=== PATIENT | male | born 1990 | race Caucasian/White ===

== ENCOUNTER 2024-09-04 07:52 | Observation (INO) ==
--- NOTE | 2024-09-04 08:09 | ED Physician Documentation ---
"PD HPI LOWER EXT INJURY Stated complaint Stated Complaint: L ANKLE PAIN Chief complaint Chief Complaint: Trauma Ext History obtained from History obtained from: Patient History of Present Illness PD HPI LOW EXT INJURY LOCATION: Left, Ankle and Other (sdenies injury to head, neck, chest, abd, other extremities.) Type of injury: Twist (Walking on muddy slope and had an inversion twisting of the ankle with immediate pain and crackle. Unable to move his ankle or attempt standing due to pain. No obvious malrotation or misalignment. EMS called and brought him here in a splint.) Timing - onset: How many hours ago (1) and Today Timing - details: Abrupt onset and Still present Improved by: Rest Worsened by: Moving and Palpating Associated symptoms: No Weakness or Numbness Meds/Allgy Home Medications Ambulatory Orders Medication Instructions Recorded Confirmed No Known Home Medications 09/04/24 09/04/24 Allergies Allergies Allergy/AdvReac Type Severity Reaction Status Date / Time No Known Drug Allergies Allergy Verified 09/04/24 08:06 [facility] Medical History Medical History (Updated 09/04/24 @ 10:03 by Shane Flynn MD) No pertinent past medical history Surgical History Surgical History (Updated 09/04/24 @ 08:05 by Mercedes Kingsley RN) No pertinent past surgical history Social History Social History (Updated 09/04/24 @ 08:05 by Mercedes Kingsley RN) Smoking Status: Never smoker Living arrangement: At home Living Condition: Alone Support Person: No Relationship: Do you feel safe in your home environment?: Yes Suffered physical, verbal, emotional, or financial abuse?: No History of Abuse: No ETOH Use: None Substance Use: denies use POLST Patient has POLST: No Exam Constitutional normal general appearance and average body habitus HENMT normocephalic and head/scalp atraumatic Chest inspection of chest normal and palpation of chest normal Respiratory breath sounds equal bilaterally and normal respiratory effort Cardiovascular normal heart rate noted and regular rhythm noted Gastrointestinal abdomen normal to inspection, abdomen soft to palpation and nontender to palpation Back/Pelvis no thoracic spine tenderness and no lumbar spine tenderness Psychiatry mental status grossly normal, oriented x3 and thought process normal Skin skin color normal and no wounds Results Vitals Vitals: Vital Signs - 24 hr 09/04/24 08:00 09/04/24 08:35 09/04/24 08:36 Temperature 36.6 C Pulse Rate 75 Respiratory Rate 20 Blood Pressure 134/110 H O2 Saturation 98 O2 Source Room air Pain Intensity 8 8 8 09/04/24 09:33 09/04/24 09:33 09/04/24 09:34 Temperature Pulse Rate Respiratory Rate Blood Pressure O2 Saturation O2 Source Pain Intensity 5 5 5 09/04/24 09:35 Temperature Pulse Rate 73 Respiratory Rate 16 Blood Pressure 139/104 H O2 Saturation 96 O2 Source Nasal cannula Pain Intensity 5 Oxygen O2 Source Nasal cannula Labs Labs: Laboratory Tests 09/04/24 09:20 WBC 6.7 RBC 5.37 Hgb 15.6 Hct 46.7 MCV 87.0 MCH 29.1 MCHC 33.4 RDW 12.8 Plt Count 281 MPV 9.6 Neut # (Auto) 5.3 Lymph # (Auto) 0.9 L [place] # (Auto) 0.4 Eos # (Auto) 0.1 Baso # (Auto) 0.1 Absolute Nucleated RBC 0.00 Nucleated RBC % 0.0 Sodium 138 Potassium 4.3 Chloride 106 Carbon Dioxide 30 Anion Gap 2.0 L BUN 15 Creatinine 0.9 Estimated GFR (MDRD) 95 Glucose 110 H Calcium 9.7 Total Bilirubin 0.8 AST 22 ALT 38 Alkaline Phosphatase 85 Total Protein 7.1 Albumin 4.5 Globulin 2.6 Albumin/Globulin Ratio 1.7 Lipase < 10 L Procedures Splint (location) - Minor left ankle: Splint applied by: Physician Type of splint: Fiberglass and Stirrup Other: Patient tolerated well, No complications, Neurovascular intact and Good alignment (slight traction applied prior to splinting to have best alignment. ) PD Medical Decision Making ED course Complexity details: reviewed results (distal tib/fib fracture; mortis intact distally. ) and d/w [facility] [place] consultant (Dr. Mack, ortho, who will surgically repair the patient. Requests splinting/alignment and then |CT scan. ) Discharge Plan Discharge Patient Disposition: ED Transfer to [facility] Condition: Stable Clinical Impression: Closed fracture of distal end of left fibula and tibia"
[2024-09-04] MEDS: HYDROmorphone 1 MG/ML CARPUJECT IM STA (08:35)
[2024-09-04] MEDS: KETOROLAC 30 MG/ML VIAL IM STA (08:36)
--- NOTE | 2024-09-04 09:24 | XRAY Report ---
PROCEDURE: XR Ankle 3+V LT INDICATIONS: twisted ankle and pain with movement. TECHNIQUE: 3 views of the ankle were acquired. COMPARISON: None. FINDINGS: Bones: Displaced spiral distal tibial fracture extending to the tibial plafond with widening of the medial ankle mortise. Angulated displaced distal fibular fracture extending to articular surface. Dis placed fracture involves the posterior malleolus. Ankle mortise is somewhat disrupted. No suspicious bony lesions. Soft tissues: No tibiotalar joint effusion. Achilles tendon appears normal. IMPRESSION: 1. Spiral comminuted fracture of the distal tibia is displaced with extension to the tibial plafond s ubjacent to the medial malleolus as well as involvement of the posterior malleolus. 2. Oblique displaced angulated distal fibular fracture extending to articular surface. 3. Somewhat disrupted ankle mortise. Comment: At some point, CT is suggested to understand fractures better Reviewed by: Yuan Hernandez MD on 09/04/2024 9:22 AM PST Approved by: Yuan Hernandez MD on 09/04/2024 9:22 AM PST Station ID: [id number]
[2024-09-04 09:29] LABS: BASOPHILS # (AUTO) 0.1 10^3/uL (0.0-0.1); BASOPHILS % (AUTO) 0.7 %; EOSINOPHILS # (AUTO) 0.1 10^3/uL (0.0-0.7); EOSINOPHILS % (AUTO) 0.7 %; HCT - HEMATOCRIT 46.7 % (42.0-52.0); HGB - HEMOGLOBIN 15.6 g/dL (14.0-18.0); LYMPHOCYTES # (AUTO) 0.9 10^3/uL (1.5-3.5); MEAN CORPUSCULAR HEMOGLOBIN 29.1 pg (27.0-31.0); MEAN CORPUSCULAR HGB CONC 33.4 g/dL (32.0-36.0); MEAN PLATELET VOLUME 9.6 fL (7.4-11.4); MONOCYTES # (AUTO) 0.4 10^3/uL (0.0-1.0); MONOCYTES % (AUTO) 5.8 %; NEUTROPHILS # (AUTO) 5.3 10^3/uL (1.5-6.6); NEUTROPHILS % (AUTO) 79.4 %; PLT - PLATELET COUNT 281 10^3/uL (130-450); RED BLOOD COUNT 5.37 10^6/uL (4.70-6.10); RED CELL DISTRIBUTION WIDTH 12.8 % (12.0-15.0); WHITE BLOOD COUNT 6.7 x10^3/uL (4.8-10.8)
[2024-09-04] MEDS: HYDROmorphone 1 MG/ML CARPUJECT IVP STA (09:34)
[2024-09-04 09:55] LABS: ALBUMIN 4.5 g/dL (3.2-5.5); ALBUMIN/GLOBULIN RATIO 1.7 (1.0-2.2); ALKALINE PHOSPHATASE 85 IU/L (42-121); ALT ALANINE AMINOTRANSFERASE 38 IU/L (10-60); AST ASPARTATE AMINOTRANSFERASE 22 IU/L (10-42); BILIRUBIN,TOTAL 0.8 mg/dL (0.2-1.0); BUN - BLOOD UREA NITROGEN 15 mg/dL (6-20); CALCIUM 9.7 mg/dL (8.5-10.3); CARBON DIOXIDE - CO2 30 mmol/L (21-32); CHLORIDE 106 mmol/L (101-111); CREATININE 0.9 mg/dL (0.6-1.3); GFR - MDRD 95 (>89); GLUCOSE 110 mg/dL (74-104); LIPASE < 10 U/L (11-82); POTASSIUM 4.3 mmol/L (3.5-4.5); SODIUM 138 mmol/L (135-145); TOTAL PROTEIN 7.1 g/dL (6.4-8.9)
--- NOTE | 2024-09-04 11:00 | CT Report ---
PROCEDURE: CT Lower Extremity LT WO INDICATIONS: ankle fracture TECHNIQUE: Noncontrast 3-mm axial sections acquired from the distal tibial shaft to the talar dome, with coronal and sagittal reformats. For radiation dose reduction, the following was used: automated exposure c ontrol, adjustment of mA and/or kV according to patient size. COMPARISON: None. FINDINGS: Image quality: Excellent. Bones: Mildly displaced, spiral fracture of the distal tibia diaphysis, extending to the medial tibi al plafond. There is mild lateral displacement of the distal fracture fragment. Mildly displaced, int ra-articular, spiral fracture of the distal fibula metadiaphysis, with mild posterior displacement of distal fracture fragment. There is a small posterior malleolus fracture, involving approximately 20% of the tibial plafond articular surface. Small punctate ossification dorsal and lateral to the calca neocuboid articulation (3:81), concerning for punctate periosteal avulsion fracture. No ankle dislocation. Soft tissues: Diffuse subcutaneous edema of the ankle. The flexors, extensors, peroneal tendons are unremarkable. Mild tendinosis of distal Achilles tendon. Small posterior calcaneus enthesophyte. Impression: 1.Mildly displaced fracture of the distal tibia diaphysis, extending to the medial tibial plafond. 2.Mildly displaced fracture of the distal fibula metadiaphysis. 3.Small posterior malleolus fracture. 4.Punctate periosteal avulsion fracture about the calcaneocuboid articulation. 5.No ankle dislocation. Reviewed by: Kaitlin Felix MD on 09/04/2024 10:58 AM PST Approved by: Kaitlin Felix MD on 09/04/2024 10:58 AM PST Station ID: [id number]
--- NOTE | 2024-09-04 12:12 | HISTORY & PHYSICAL EXAMINATION ---
History of Present Illness Admitted From Admitted From:: ER History of Present Illness HPI Comment/Other: DOI: 09/04/24 CASSANDRA: Fell running down a hill and twisted ankle 34 yo M with left ankle pain and deformity after falling while running. Denies n/t/paresthesias and denies pain elsewhere. He denies prior injury. PMH: none PSH: none MEDS: none NKDA TOB: Denies ETOH: occasional SH: He works as a [employer] employee in [employer]. PE: wd/wn/nad L ankle: skin intact. + soft tissue swelling SILT s/s/t/dp/sp Fires ta/gs/ehl/fhl DP pulse 2+ and brisk cap refill 3 v of the x-ray and CT scan: Distal tibia and fibula fractures and posterior malleoli fracture (less than 20%) - displaced. Meds/Allgy Home Medications Ambulatory Orders Medication Instructions Recorded Confirmed No Known Home Medications 09/04/24 09/04/24 Allergies Allergies Allergy/AdvReac Type Severity Reaction Status Date / Time No Known Drug Allergies Allergy Verified 09/04/24 08:06 [facility] Medical History Medical History (Updated 09/04/24 @ 10:03 by Shane Flynn MD) No pertinent past medical history Surgical History Surgical History (Updated 09/04/24 @ 08:05 by Mercedes Kingsley RN) No pertinent past surgical history Social History Social History (Updated 09/04/24 @ 08:05 by Mercedes Kingsley RN) Smoking Status: Never smoker Living arrangement: At home Living Condition: Alone Support Person: No Relationship: Do you feel safe in your home environment?: Yes Suffered physical, verbal, emotional, or financial abuse?: No History of Abuse: No ETOH Use: None Substance Use: denies use POLST Patient has POLST: No Conclusion/Plan Problem List (1) Closed fracture of distal end of left fibula and tibia: Plan: I discussed the risks, benefits, and alternatives with the patient to include but not limited to damage to arteries, veins, nerves, need for additional surgery, infection, malunion, nonunion, I discussed also the need for surgery since this is an unstable ankle fracture he understands the risks and wishes to proceed with surgery. He will be admitted overnight for ORIF on 09/05/2024 - SCD to RLE - Strict elevation of LLE - Nonweigthbearing left lower extremity with crutches - NPO after midnight - TO OR tomorrow for ORIF of L ankle fracture Lab Results 09/04/24 09:20 09/04/24 09:20
[2024-09-04] MEDS ORDERED: ONDANSETRON ODT 4 MG TABLET TL PRN (12:38)
[2024-09-04] MEDS ORDERED: SODIUM CHLORIDE FLUSH 0.9% 10 ML SYRINGE IVP PRN (12:38)
[2024-09-04] MEDS: ONDANSETRON 4 MG/2 ML VIAL IVP STA (13:00)
--- NOTE | 2024-09-04 13:05 | PHARMACY PROGRESS NOTE ---
Best Possible Medication History Admit Date and Time: 09/04/24 [id number] Home Medications Medication Instructions Recorded Confirmed Type No Known Home Medications 09/04/24 09/04/24 History Processed by: Pharmacy (Medication reconciliation completed by biological science technicianCecilia) Medications reviewed in ED?: No Medication History completed: Yes Patient Interview: Completed Secondary Source(s): Insurance records [facility] Statement: As the person ultimately responsible for medication therapy, providers are able to order a medication from an existing home medication list in [facility] via the "Reconcile Routine" prior to Confirmation of that medication by customer support agent. Such practice is discouraged except when the physician, in their clinical judgment, deems that a medical need exists for a medication without regard to previous use.
[2024-09-04] MEDS: SODIUM CHLORIDE FLUSH 0.9% 10 ML SYRINGE IVP SCH (18:34)
[2024-09-04] MEDS: oxyCODONE 5 MG TABLET PO PRN (23:45)
[2024-09-04] MEDS: ACETAMINOPHEN 325 MG TABLET PO PRN (23:45)
[2024-09-05] MEDS: LACTATED RINGERS 1,000 ML IV SCH ×2 (02:20→20:29)
--- NOTE | 2024-09-05 09:07 | Discharge Summary ---
"Discharge Summary Admit Date: 09/04/24 Discharge Date: 09/06/24 Discharging Provider: DR DOMINGUEZ DIAGNOSES Admission Diagnoses: LEFT DISTAL TIBIA AND FIBULA FRACTURES CONSULTS | PROCEDURES Procedures: ORIF LEFT DISTAL TIBIA AND FIBULA FRACTURES - 05 Sep 2024 ALLERGIES Allergies Allergy/AdvReac Type Severity Reaction Status Date / Time No Known Drug Allergies Allergy Verified 09/04/24 08:06 MEDICATIONS Ambulatory Orders Medication Instructions Recorded Confirmed acetaminophen 325 mg tablet 975 mg (3 x 325 mg) PO Q8H #120 09/05/24 (Tylenol) tabs aspirin 81 mg chewable tablet 81 mg PO BID #60 tabs 09/05/24 docusate sodium 100 mg capsule 200 mg (2 x 100 mg) PO BID PRN 09/05/24 (Colace) constipation #40 caps ondansetron 4 mg disintegrating 4 mg PO Q8H PRN nausea and 09/05/24 tablet vomiting #12 tabs oxycodone 5 mg tablet 5 mg PO Q6H #28 tabs 09/05/24 LABS 09/04/24 09:20 09/04/24 09:20 FOLLOW UP Follow Up: WITH DR DOMINGUEZ IN 2 WEEKS. TIME SPENT Time Spent in Discharge (Minutes): 30 Discharge Plan Discharge Patient Disposition: 01 Home, Self Care Condition: Stable Prescriptions: Continued oxycodone 5 mg tablet 5 mg PO Q6H Qty: 28 0RF docusate sodium [Colace] 100 mg capsule 200 mg PO BID PRN (Reason: constipation) Qty: 40 0RF ondansetron 4 mg tablet,disintegrating 4 mg PO Q8H PRN (Reason: nausea and vomiting) Qty: 12 0RF acetaminophen [Tylenol] 325 mg tablet 975 mg PO Q8H Qty: 120 0RF aspirin 81 mg tablet,chewable 81 mg PO BID Qty: 60 0RF No Action No Known Home Medications Activity Restrictions/Additional Instructions: OPEN REDUCTION INTERNAL FIXATION LEFT ANKLE Surgeon: Dr Dominguez Date: 09/05/24 [facility] POST OPERATIVE INSTRUCTIONS ACTIVITY INSTRUCTIONS * You are non weight bearing to the left ankle. Use crutches at all times when moving around. * Do not use the extremity for pushing, pulling, or bearing weight until instructed to do so by your provider after your clinic visit. We encourage active movement of the toes every hour while awake to prevent stiffness. * You must be cleared by your orthopedic provider before operating a vehicle. * Keep extremity elevated to the level of the heart to reduce swelling. You can use ice on top of the splint to reduce pain and swelling of the extremity. DRESSING CARE * You have a well-padded, bulky splint in place that is secured with an Vega bandage. Leave the dressing in place until your follow up visit in clinic. * If you notice fever, chills, redness, excessive drainage or bleeding, a sharp increase in pain that persists after taking pain medication, pain in your calf muscles, chest pain or trouble breathing please unwrap the dressing and investigate. Then call the office with findings for further guidance. If it is after regular clinic hours, please seek care in the emergency department. * If you need to take a shower cover the dressing in a garbage bag and secure it to keep the dressing dry and intact. * In the rare case of any severe chest pain and trouble breathing, seek immediate care, do not delay for a call to the clinic. MEDICATIONS * Take three pills of 325 mg Tylenol (acetaminophen) every 8 hours regardless of pain in a scheduled manner. Do not exceed 3000 mg of Tylenol (from ALL sources, including over the counter combination products) in a 24-hour period due to risk of liver injury. * Take one pill of 5 mg oxycodone by mouth as needed for break through pain stronger than 7 out of 10 on a pain scale. Take this for severe pain 1 hour after taking the scheduled Tylenol and ibuprofen. Do not exceed 4 tablets in a 24-hour period. * Take 200 mg of Colace by mouth every 12 hours for constipation. Narcotic medications such as oxycodone may increase your risk of constipation after surgery. * Take 4 mg of Zofran by mouth every 6 hours as needed for uncontrolled nausea or vomiting. If you have persistent nausea and vomiting call our office or seek care in the emergency department.Take one pill of 81 mg of aspirin two times daily 12 hours apart for 6 weeks for blood clot prevention. * Resume all ofyour normal home medications unless specified otherwise by your surgeon tomorrow morning. Diet: Regular Interventions: Belongings Inventory Last Done: 09/04/24 14:36 Health Concerns: You were admitted for operative fixation of a left ankle fracture. Care Plan Goals: Return to independent ambulation after ankle fracture Assessment: The above plan and activity restrictions were discussed with the patient who verbalized understanding. Written instructions were provided as a reminder. Plan of Treatment: Operative fixation of left ankle fracture completed 09/05/24. Print Language: Sinhala Patient Instructions: Surgery Anesthesia After Stand Alone Forms: PCP List Follow-up Care: Rylee Dominguez DO [Provider Admit Priv/Credential] -"
--- NOTE | 2024-09-05 13:57 | ANESTHESIA PROCEDURE NOTE ---
Pre-Anesthesia VS, & Labs Diagnosis Surgical Diagnosis:: L tib fib fx Procedure Procedure: orif L tib fib fx Vitals Vital Signs: Temp Pulse Resp BP Pulse Ox 36.6 C 75 18 123/77 96 09/05/24 09:37 09/05/24 09:37 09/05/24 09:37 09/05/24 09:37 09/05/24 09:37 NPO NPO: >8 hours Lab Results Current Lab Results: Laboratory Tests 09/04/24 09:20: WBC 6.7, RBC 5.37, Hgb 15.6, Hct 46.7, MCV 87.0, MCH 29.1, MCHC 33.4, RDW 12.8, Plt Count 281, MPV 9.6, Neut # (Auto) 5.3, Lymph # (Auto) 0.9 L, [place] # (Auto) 0.4, Eos # (Auto) 0.1, Baso # (Auto) 0.1, Absolute Nucleated RBC 0.00, Nucleated RBC % 0.0, Sodium 138, Potassium 4.3, Chloride 106, Carbon Dioxide 30, Anion Gap 2.0 L, BUN 15, Creatinine 0.9, Estimated GFR (MDRD) 95, G lucose 110 H, Calcium 9.7, Total Bilirubin 0.8, AST 22, ALT 38, Alkaline Phosphatase 85, Total Protein 7.1, Albumin 4.5, Globulin 2.6, Albumin/Globulin Ratio 1.7, Lipase < 10 L Lab results reviewed: Yes 09/04/24 09:20 09/04/24 09:20 Meds/Allgy Home Medications Ambulatory Orders Medication Instructions Recorded Confirmed No Known Home Medications 09/04/24 09/04/24 Allergies Allergies Allergy/AdvReac Type Severity Reaction Status Date / Time No Known Drug Allergies Allergy Verified 09/04/24 08:06 [facility] Medical History Medical History (Updated 09/04/24 @ 10:03 by Shane Flynn MD) No pertinent past medical history Surgical History Surgical History (Updated 09/05/24 @ 13:56 by Jamie Scott CRNA) S/P wisdom tooth extraction No pertinent past surgical history Social History Social History (Updated 09/04/24 @ 08:05 by Mercedes Kingsley RN) Smoking Status: Never smoker Second hand tobacco smoke exposure: No Do you dip or chew tobacco?: No Do you vape?: No Living arrangement: At home Living Condition: Alone Support Person: No Relationship: Level: Independent Do you feel safe in your home environment?: Yes Suffered physical, verbal, emotional, or financial abuse?: No History of Abuse: No ETOH Use: None Substance Use: denies use POLST Patient has POLST: No Anesthesia Exam (Expanded) Exam General: Alert, Oriented x3 and Cooperative Dental: WNL Mouth Openin Fingerbreadth Neck Mobility: Normal Mallampati classification: II Thyromental Distance: 4-6 cm Respiratory: Lungs clear and Normal breath sounds Cardiovascular: Regular rate Neurological: Normal speech Mental/Cognitive Status: Alert/Oriented X3 and Normal for patient Cognitive Status: Within normal limits Plan Problem List (1) Closed fracture of distal end of left fibula and tibia: Plan: I discussed the risks, benefits, and alternatives with the patient to include but not limited to damage to arteries, veins, nerves, need for additional surgery, infection, malunion, nonunion, I discussed also the need for surgery since this is an unstable ankle fracture he understands the risks and wishes to proceed with surgery. He will be admitted overnight for ORIF on 09/05/2024 - SCD to RLE - Strict elevation of LLE - Nonweigthbearing left lower extremity with crutches - NPO after midnight - TO OR tomorrow for ORIF of L ankle fracture (2) No pertinent past medical history: Plan Anesthesia Type: General Consent for Procedure(s) Verified and Reviewed: Yes Code Status: Attempt Resuscitation ASA Classification ASA classification: 2-Mild systemic disease Is this case an emergency?: No
[2024-09-05] MEDS ORDERED: METOCLOPRAMIDE 10 MG/2 ML VIAL IVP PRN ×2 (13:58→14:00)
[2024-09-05] MEDS ORDERED: fentaNYL 100 MCG/2 ML VIAL IVP PRN ×2 (13:58→14:00)
[2024-09-05] MEDS ORDERED: HYDROmorphone 0.5 MG/0.5 ML SYRINGE IVP PRN ×2 (13:58→14:00)
[2024-09-05] MEDS ORDERED: NALOXONE 0.4 MG/ML VIAL IVP PRN ×2 (13:58→14:00)
[2024-09-05] MEDS ORDERED: ONDANSETRON 4 MG/2 ML VIAL IVP PRN ×2 (13:58→14:00)
[2024-09-05] MEDS ORDERED: MORPHINE 2 MG/ML CARPUJECT IVP PRN ×2 (13:58→14:00)
[2024-09-05] MEDS ORDERED: ATROPINE ABBOJECT 1 MG/10 ML SYRINGE IVP PRN ×2 (13:58→14:00)
[2024-09-05] MEDS ORDERED: ePHEDrine 50 MG/ML VIAL IVP PRN ×2 (13:58→14:00)
[2024-09-05] MEDS ORDERED: LACTATED RINGERS 1,000 ML IV SCH (14:00)
[2024-09-05] MEDS ORDERED: MIDAZOLAM 2 MG/2 ML VIAL ONE (14:18)
[2024-09-05] MEDS ORDERED: PROPOFOL 200 MG/20 ML VIAL IVP ONE (14:19)
[2024-09-05] MEDS ORDERED: LIDOCAINE-PF 2% 10 ML AMP SUBQ ONE (14:19)
[2024-09-05] MEDS ORDERED: VANCOMYCIN 1 GM VIAL ONE (14:19)
[2024-09-05] MEDS ORDERED: fentaNYL 100 MCG/2 ML VIAL ONE ×2 (14:20→16:55)
[2024-09-05] MEDS ORDERED: ROCURONIUM 50 MG/5 ML VIAL ONE (14:21)
[2024-09-05] MEDS ORDERED: BUPIVACAINE 0.5% PF 10 ML VIAL ONE ×2 (14:38→14:48)
[2024-09-05] MEDS ORDERED: ONDANSETRON 4 MG/2 ML VIAL ONE (14:53)
[2024-09-05] MEDS ORDERED: DEXAMETHASONE 4 MG/ML VIAL ONE (14:53)
[2024-09-05] MEDS ORDERED: HYDROmorphone 1 MG/ML CARPUJECT ONE (14:56)
[2024-09-05] MEDS ORDERED: ceFAZolin 1 GM VIAL ONE (14:58)
[2024-09-05] MEDS ORDERED: ACETAMINOPHEN 1,000 MG/100 ML 1,000 MG/100 ML BAG IV ONE (15:17)
[2024-09-05] MEDS ORDERED: SUGAMMADEX 200 MG/2 ML VIAL IVP ONE (16:00)
[2024-09-05] MEDS ORDERED: KETOROLAC 30 MG/ML VIAL ONE (16:33)
--- NOTE | 2024-09-05 17:46 | OPERATIVE REPORT ---
Operative Report General Admit Date: 09/04/24 Procedure Data: Operation Date: 09/05/24 13:15 Proposed Procedures p ORIF Tibia AND FIBULA(Left) - Rylee Mack DO Actual Procedures p ORIF Tibia and Fibula(Left) - Rylee Mack DO Pre-Op Diagnosis: Lt ankle tibia and fibula fractures Anesthesia Type General Case Staff Anesthesia Provider: Jamie Scott Assisting Provider: Jennifer Downs Assisting Provider: Johnny Riley Rep: Erickson Conrad (small and nephew). Case Times Into Recovery: 09/05/24 17:29 Procedure Start: 09/05/24 15:12 Procedure End: 09/05/24 17:19 Time out: 09/05/24 15:11 Implants PLATE 5H L 81MM Other Other Information/Narrative: Preop diagnosis left tib-fib fracture Postoperative diagnosis same as above Procedure performed: Open reduction internal fixation left tib fib fracture 2) short leg splint Surgeon Rylee Espinoza DO Sawdust Machine Operator Surgeon Johnny Riley MD Sawdust Machine Operator: Sangeeta Hayward PAGovind Indications for surgery please see preoperative H&P Total estimated blood loss 100 cc Tourniquet time 119 minutes at 250 mmHg Implants: 1) Small & Nephew anterior lateral tibial plate 2) Small & Nephew lateral fibula plate 3) multiple 3 5 and 2 7 screws Procedure in detail: The patient was met in the preoperative holding area his left lower extremity was signed is correct extremity. He was taken back to the operating room and placed in supine position. All bony prominences were padded. A well-padded tourniquet was placed his left lower extremity. The patient was prepped and draped in standard sterile fashion. A timeout was performed confirming the correct patient correct extremity initials on the operative site and administration of IV antibiotics. An Esmarch was used to exsanguinate the left lower extremity and the tourniquet was inflated to 250 mmHg. A lateral incision was made approximately 10 cm just anterior to the fibula. Dissection was taken down to the fibula fracture the fibula fracture was identified and cleared of debris. Next the fascia over the anterior compartment is identified and incised the superficial peroneal nerve was identified and protected throughout the case. Using a combination of finger dissection as well as wood handle elevator the anterior compartment was elevated off the anterior aspect of the. The fracture fragments were identified and cleared of debris. A pointed reduction clamp was used to reduce the tibia fracture the reduction was confirmed with intraoperative fluoroscopy. An anterior lateral plate was utilized to fix the tibia in an anatomic position. Several screws were used both proximally and distally to the fracture site after reduction and fixation was confirmed with fluoroscopy I then turned my attention to the fibula. The fracture site was cleared of debris and a pointed reduction clamp was used to reduce the fracture. A 2.7 lag screw was placed in standard fashion perpendicular to the fracture site this achieved a good reduction. A lateral fibular plate was utilized to fix the fibula and adequate amount of screws were used proximally and distally. THe wound was copiously irrigated and closed in layered fashion with 2-0 vicryl and 3-0 nylon. A sterile dressing was applied consisting of xeroform, plain gauze and an L and U splint. The patient was awoken in stable condition. All counts were correct at the end of the case.
--- NOTE | 2024-09-05 18:53 | ANESTHESIA POST OP EVALUATION ---
Anesthesia Post Eval Post Anesthesia Eval Vitals: Last Vital Signs Temp 36.6 C 09/05/24 18:30 Pulse 85 09/05/24 18:30 Resp 20 09/05/24 18:30 BP 119/83 09/05/24 18:30 Pulse Ox 93 09/05/24 18:30 O2 Flow Rate 2 09/05/24 18:30 CV Function Including HR & BP: Stable Pain Control: Satisfactory Nausea & Vomiting: Negative Mental Status: Baseline Respiratory Status: Airway Patent Hydration Status: Satisfactory Anesthesia Complications: None
--- NOTE | 2024-09-05 20:19 | XRAY Report ---
PROCEDURE: XR Ankle 1-2V LT INDICATIONS: Post op imaging - go a little higher on the tibia TECHNIQUE: 3 views of the ankle were acquired. COMPARISON: 09/04/2024 FINDINGS: Bones: Improved anatomic alignment of the tibial and fibular fractures, post plate/screw fixation. Ca lcaneal enthesopathy. Soft tissues: Cast material obscured the limb. IMPRESSION: Postsurgical changes of distal tibial and fibular fixation. Reviewed by: James Nazario MD on 09/05/2024 8:18 PM PST Approved by: James Nazario MD on 09/05/2024 8:18 PM PST Station ID: [id number]
[2024-09-05] MEDS: NS W/20 MEQ KCL 1,000 ML IV SCH (20:27)
[2024-09-05] MEDS: ASPIRIN EC 81 MG TABLET PO SCH (20:52)
[2024-09-05] MEDS: DOCUSATE SODIUM 100 MG CAPSULE PO SCH (20:52)
--- NOTE | 2024-09-05 20:54 | XRAY Report ---
PROCEDURE: FL OR C-Arm Procedure INDICATIONS: Surgical Procedure FLUORO TIME: 0.4 MIN Comparison: 09/04/2024. FINDINGS/IMPRESSION: Fluoroscopic guidance utilized for an ankle ORIF. Reviewed by: Yvon Fonseca MD on 09/05/2024 8:52 PM PST Approved by: Yvon Fonseca MD on 09/05/2024 8:52 PM [facility] Station ID: [id number]
[2024-09-06] MEDS: ACETAMINOPHEN 325 MG TABLET PO SCH (08:23)
--- NOTE | 2024-09-06 13:28 | POST OP PROGRESS NOTE ---
Subjective General Admit Date: 09/04/24 Procedure Date: 09/05/24 Post Op Days: 1 Procedure Performed: ORIF left tibia and fibula fractures Other Other Information/Narrative: Denies f/c/ns. Pain well controlled. PE: wd/wn/nad. VSS LLE: splint intact. SILT all toes. Moves all toes. DP 2 + Brisk cap refill. a/p: s/p ORIF L tib fib fractures. - doing well - NWB LLE with crutches - ELevate - d/c to home after having ambulated with crutches. - F/u in ortho in 2 weeks.
[2024-09-06 16:27] VITALS: BP 143/107; TEMP 98.4; O2SAT 96
== END 2024-09-06 16:30 | disposition home or self-care (01) ==
LOC: ED 07:52 → MS2 12:11 → INTOOBSV 12:11 → MS2 12:28
PROVIDERS: ADMIT Orthopaedic Surgery; ATTEND Orthopaedic Surgery